=== PATIENT | male | born 1965 | race Two or more races ===

== ENCOUNTER 2019-01-09 06:00 | Inpatient (IN) | payer OTHER ==
[~2019-01-09] VITALS: Ht 175.3 cm; Wt 90.7 kg
[~2019-01-09 06:00] MED LIST: ADVIL200 M1 PO; ASPIR 8181 MG PO; ENBREL25 MG/0.5; FLECAINIDE ACE100 MG PO; MILLIPRED5 MG PO; NEURONTIN300 MG PO; TREXALL5 MG PO; [UNRECOGNIZED DRUG - OTHER]
[2019-01-16] MEDS ORDERED: PREDNISONE 5MG PO (10:56)
[2019-01-16] MEDS ORDERED: ULTRACET PO (10:56)
== END 2019-01-16 20:22 | disposition home or self-care (01) | DRG 330 ==
LOC: CIR.AMB 06:00 → SURG 09:15 → EDSTATUS 09:15 → SURH 13:26 → O/R 13:26 → SURH 14:34
PROVIDERS: ADMIT Surgery
PROC: 0WUF4JZ Supplement Abdominal Wall with Synthetic Substitute, Percutaneous Endoscopic Approach (ICD-10-PCS; 2019-01-09)
PROC: 0DQB4ZZ Repair Ileum, Percutaneous Endoscopic Approach (ICD-10-PCS; principal; 2019-01-09 08:45)
PROC: 3E0F7GC Introduction of Other Therapeutic Substance into Respiratory Tract, Via Natural or Artificial Opening (ICD-10-PCS; 2019-01-12)
PROC: 0DH67UZ Insertion of Feeding Device into Stomach, Via Natural or Artificial Opening (ICD-10-PCS; 2019-01-14)
PROC: 3E0G76Z Introduction of Nutritional Substance into Upper GI, Via Natural or Artificial Opening (ICD-10-PCS; 2019-01-14)
DX: K43.0 Incisional hernia with obstruction, without gangrene (principal); K91.71 Accidental puncture and laceration of a digestive system organ or structure during a digestive system procedure; K91.31 Postprocedural partial intestinal obstruction; E44.0 Moderate protein-calorie malnutrition; K57.30 Diverticulosis of large intestine without perforation or abscess without bleeding; M06.89 Other specified rheumatoid arthritis, multiple sites